=== PATIENT | male | born 1980 | race Caucasian/White ===

== ENCOUNTER 2017-09-10 12:52 | Emergency (ER) | payer OTHER ==
[2017-09-10] MEDS ORDERED: Sodium Chloride 0.9% 2.5 ML Syringe FLUSH PRN (13:15)
[2017-09-10] MEDS ORDERED: Sodium Chloride 0.9% 10 ML Syringe FLUSH PRN (13:15)
--- NOTE | 2017-09-10 13:15 | EDM.PDOC ---
ED HPI GENERAL MEDICAL PROBLEM - General Chief Complaint: Genitourinary Problem Stated Complaint: POSSIBLE KIDNEY STONE Time Seen by Provider: 09/10/17 13:09 Source of Information: Reports: Patient History Limitations: Reports: No Limitations - History of Present Illness INITIAL COMMENTS - FREE TEXT/NARRATIVE: HISTORY AND PHYSICAL: []37-year-old male presenting with right-sided flank pain. He states he's been passing 17 kidney stones yesterday and now requesting a shot of toradal for pain. History of Present Illness: [Patient states he is previously had kidney stones has been able to pass. Concerned about the expense of having CT and lab work completed. He does state that he will return should he worsening condition] Review of Systems: As per history of present illness and below otherwise all systems reviewed and negative. Past medical history: As per history of present illness and as reviewed below otherwise noncontributory. Surgical history: As per history of present illness and as reviewed below otherwise noncontributory. Social history: No reported history of drug or alcohol abuse. Family history: As per history of present illness and as reviewed below otherwise noncontributory. Physical exam: Alert and oriented male quite concerned about his monetary situation. HEENT: Atraumatic, normocehpalic, pupils reactive, negative for conjunctival pallor or scleral icterus, mucous membranes moist, throat clear, neck supple, nontender, trachea midline. Lungs: Clear to auscultation, breath sounds equal bilaterally, chest non tender. Heart: S1S2, regular, negative for clicks, rubs, or JVD. Abdomen: Soft, nondistended, nontender. Negative for masses or hepatossplenmegaly. Positive for right costovertebral tenderness. Pelvis: Stable nontender. Genitourinary: Deferred. Rectal: Deferred Extremities: Atraumatic, negative for cords or calf pain. Neurovascular unremarkable. Neuro: Awake, alert, oriented. Cranial nerves II through XII unremarkable. Cerebellum unremarkable. Motor and sensory unremarkable throughout. Exam nonfocal. Diagnostics: [] Therapeutics: [] Impression: [Renal stones] Plan: []Toradol 60 mg IM Discharge to home Referral will be sent to Dr. Estrella PRIDE [facility] [address] [place] [id number] Definitive disposition and diagnosis as appropriate pending reevaluation and review of above. Onset: Sudden Duration: Day(s): (2) Right Flank Pain Score (Numeric/FACES): 7 - Related Data Allergies Allergy/AdvReac Type Severity Reaction Status Date / Time Sulfa (Sulfonamide Allergy Anaphylactic Verified 09/10/17 13:06 Antibiotics) Shock Home Meds: Home Meds . [No Known Home Meds] 09/10/17 [History] Prazosin HCl [Prazosin] 5 mg PO BID 09/10/17 [History] traZODone 100 mg PO BEDTIME 09/10/17 [History] ED ROS GENERAL - Review of Systems Review Of Systems: ROS reveals no pertinent complaints other than HPI. ED EXAM, RENAL/ - Physical Exam Exam: See Below (see dictation) Course - Vital Signs Last Recorded V/S: Last Vital Signs Temp 36.0 C 09/10/17 13:00 Pulse 89 09/10/17 13:00 Resp 18 09/10/17 13:00 BP 139/95 H 09/10/17 13:00 Pulse Ox 99 09/10/17 13:00 Departure - Departure Time of Disposition: 13:27 Disposition: Home, Self-Care 01 Condition: Good Clinical Impression: Renal stones - Discharge Information Referrals: PCP,None [Primary Care Provider] - Jenny De La Rosa MD [Physician] - Additional Instructions: The following information is given to patients seen in the emergency department who are being discharged to home. This information is to outline your options for follow-up care. We provide all patients seen in our emergency department with a follow-up referral. The need for follow-up, as well as the timing and circumstances, are variable depending upon the specifics of your emergency department visit. If you don't have a primary care physician on staff, we will provide you with a referral. We always advise you to contact your personal physician following an emergency department visit to inform them of the circumstance of the visit and for follow-up with them and/or the need for any referrals to a consulting specialist. The emergency department will also refer you to a specialist when appropriate. This referral assures that you have the opportunity for followup care with a specialist. All of these measure are taken in an effort to provide you with optimal care, which includes your followup. Under all circumstances we always encourage you to contact your private physician who remains a resource for coordinating your care. When calling for followup care, please make the office aware that this follow-up is from your recent emergency room visit. If for any reason you are refused follow-up, please contact the [facility] emergency department at and asked to speak to the emergency department charge nurse. You received Toradol while in the emergency department for your kidney stones Please follow-up with urology referral was made to Dr. Jenny De La Rosa [facility] [address] [place] [id number] Encourage to return to the emergency department should his symptoms worsen Understanding towards his financial concerns was expressed Encouraged to follow up as soon as he can for his condition
[2017-09-10] MEDS ORDERED: Sodium Chloride 0.9% 1,000 ML IV ONE (13:17)
[2017-09-10] MEDS ORDERED: Morphine 2 MG/ML Syringe IVPUSH ONE (13:17)
[2017-09-10] MEDS ORDERED: Ketorolac 60 MG/2 ML SDV IM ONE (13:23)
== END 2017-09-10 13:50 | disposition home or self-care (01) ==
LOC: MW.ED 12:52
DX: N20.0 Calculus of kidney (principal); Z88.2 Allergy status to sulfonamides
CPT/HCPCS: 96372; 99283; J1885

== ENCOUNTER 2017-09-12 10:57 | Emergency (ER) | payer OTHER ==
[2017-09-12 11:57] LABS: CHLORIDE,CL 104 mmol/L (98-110); SODIUM,NA 137 mmol/L (136-146)
--- NOTE | 2017-09-12 11:57 | EDM.PDOC ---
ED HPI GENERAL MEDICAL PROBLEM - General Chief Complaint: Genitourinary Problem Stated Complaint: LOWER BACK PAIN Time Seen by Provider: 09/12/17 11:15 Source of Information: Reports: Patient History Limitations: Reports: No Limitations - History of Present Illness INITIAL COMMENTS - FREE TEXT/NARRATIVE: HISTORY AND PHYSICAL: History of present illness: [Patient comes to the emergency room complaining of right flank pain. Symptoms have been present for the past 3 days. He was evaluated in the emergency room on September 10 with complaints of passing numerous kidney stones. He left prior to having any tests run as he was concerned about the cost. He received a shot of Toradol at that time which gave no improvement in his symptoms. He presents today with continued pain to his right flank with radiation into his buttock. He has been urinating more frequently than usual and has had increased appetite. He reports a history of type 2 diabetes for which she was prescribed metformin. His sugars normalized and he was advised to stop the metformin. His PCP is in [facility] and he has not followed there in the last 6-8 months. He denies fever and chills. He's had no recent illness or infection. No sore throat right nose or cough and cold symptoms. No chest pain shortness of breath or difficulty breathing. Appetite has been normal. No abdominal pain, nausea or vomiting. No left sided flank pain. Denies swelling to his feet and lower legs. He has not taken any medications for his symptoms.] Review of systems: As per history of present illness and below otherwise all systems reviewed and negative. Past medical history: As per history of present illness and as reviewed below otherwise noncontributory. Surgical history: As per history of present illness and as reviewed below otherwise noncontributory. Social history: No reported history of drug or alcohol abuse. Family history: As per history of present illness and as reviewed below otherwise noncontributory. Physical exam: HEENT: Atraumatic, normocephalic. Oral mucous membranes moist, throat clear. Lungs: Clear to auscultation, breath sounds equal bilaterally. Heart: S1S2, regular rate and rhythm. Abdomen: Abdomen is obese. Bowel sounds are normoactive throughout. Abdomen is soft and nondistended. He has no tenderness with palpation. Tenderness with percussion over right flank. No masses guarding or rebound. Pelvis: Stable nontender. Genitourinary: Deferred. Rectal: Deferred. Extremities: Atraumatic, ambulatory without difficulty. Full range of motion. Neurovascular unremarkable. Neuro: Awake, alert, oriented. Motor and sensory unremarkable throughout. Exam nonfocal. Diagnostics: [CBC, CMP, UA, CT abd/pelvis w/o contrast Impression: [R low back pain] Plan: [Discussed with patient that his lab results are largely unremarkable and CT of his abdomen and pelvis shows no kidney stones or abnormality. Will treat as ow back pain with a likely musculoskeletal cause. Recommend [id number] analgesics and anti-inflammatories. Establish care with local PCP and follow-up as we discussed. He verbalized understanding of today's instruction in conversation.] Definitive disposition and diagnosis as appropriate pending reevaluation and review of above. Right Flank Pain Score (Numeric/FACES): 8 - Related Data Allergies Allergy/AdvReac Type Severity Reaction Status Date / Time Sulfa (Sulfonamide Allergy Anaphylactic Verified 09/12/17 10:59 Antibiotics) Shock Home Meds: Home Meds Prazosin HCl [Prazosin] 5 mg PO BID 09/10/17 [History] traZODone 100 mg PO BEDTIME 09/10/17 [History] Past Medical History Psychiatric History: Reports: PTSD - Infectious Disease History Infectious Disease History: Reports: Chicken Pox, Measles, Mumps, Rubella, Shingles Social & Family History - Family History Family Medical History: Noncontributory - Tobacco Use Smoking Status *Q: Current Every Day Smoker Years of Tobacco use: 20 Packs/Tins Daily: 1 - Caffeine Use Caffeine Use: Reports: Energy Drinks, Soda - Recreational Drug Use Recreational Drug Use: No ED ROS GENERAL - Review of Systems Review Of Systems: ROS reveals no pertinent complaints other than HPI. ED EXAM, RENAL/ - Physical Exam Exam: See Below Course - Vital Signs Last Recorded V/S: Last Vital Signs Temp 97.8 F 09/12/17 11:06 Pulse 97 09/12/17 11:06 Resp 18 09/12/17 11:06 BP 141/76 H 09/12/17 11:06 Pulse Ox 99 09/12/17 11:06 - Orders/Labs/Meds Orders: Active Orders 24 hr Category Date Time Status Abdomen Pelvis wo Cont [CT] Stat Exams 09/12/17 12:17 Taken Labs: Laboratory Tests 09/12/17 09/12/17 09/12/17 Range/Units 11:29 11:29 11:45 WBC 10.06 (4.0-11.0) K/uL RBC 5.86 (4.50-5.90) M/uL Hgb 17.6 H (13.0-17.0) g/dL Hct 50.6 H (38.0-50.0) % MCV 86.3 (80.0-98.0) fL MCH 30.0 (27.0-32.0) pg MCHC 34.8 (31.0-37.0) g/dL RDW Std Deviation 40.1 (28.0-62.0) fl RDW Coeff of Lindsay 13 (11.0-15.0) % Plt Count 238 (150-400) K/uL MPV 9.50 (7.40-12.00) fL Neut % (Auto) 55.4 (48.0-80.0) % Lymph % (Auto) 32.1 (16.0-40.0) % Dale % (Auto) 10.0 (0.0-15.0) % Eos % (Auto) 2.0 (0.0-7.0) % Baso % (Auto) 0.5 (0.0-1.5) % Neut # (Auto) 5.6 (1.4-5.7) K/uL Lymph # (Auto) 3.2 H (0.6-2.4) K/uL Dale # (Auto) 1.0 H (0.0-0.8) K/uL Eos # (Auto) 0.2 (0.0-0.7) K/uL Baso # (Auto) 0.1 (0.0-0.1) K/uL Nucleated RBC % 0.0 /100WBC Nucleated RBCs # 0 K/uL Sodium 137 (136-146) mmol/L Potassium 4.5 (3.5-5.1) mmol/L Chloride 104 (98-110) mmol/L Carbon Dioxide 23 (21-31) mmol/L BUN 10 (6.0-23.0) mg/dL Creatinine 0.8 (0.6-1.5) mg/dL Est Cr Clr Drug Dosing 159.33 mL/min Estimated GFR (MDRD) > 60.0 ml/min Glucose 79 (60-110) mg/dL Calcium 9.7 (8.8-10.8) mg/dL Total Bilirubin 0.3 (0.1-1.5) mg/dL AST 27 (5-40) IU/L ALT 31 (8-54) IU/L Alkaline Phosphatase 82 (40-150) Total Protein 8.6 H (6.0-8.0) g/dL Albumin 4.3 (3.5-5.0) g/dL Globulin 4.3 H (2.0-3.5) g/dL Albumin/Globulin Ratio 1.0 L (1.3-2.8) Urine Color YELLOW Urine Appearance CLEAR Urine pH 7.0 (5.0-8.0) Ur Specific [place] 1.020 (1.001-1.035) Urine Protein NEGATIVE (NEGATIVE) mg/dL Urine Glucose (UA) 100 H (NEGATIVE) mg/dL Urine Ketones NEGATIVE (NEGATIVE) mg/dL Urine Occult Blood TRACE-LYSED (NEGATIVE) Urine Nitrite NEGATIVE (NEGATIVE) Urine Bilirubin NEGATIVE (NEGATIVE) Urine Urobilinogen 0.2 (<2.0) EU/dL Ur Leukocyte Esterase NEGATIVE (NEGATIVE) Urine RBC RARE (0-2/HPF) Urine WBC NONE SEEN (0-5/HPF) Ur Epithelial Cells RARE (NONE-FEW) Urine Bacteria NOT SEEN (NEGATIVE) Urine Mucus LIGHT (NONE-MOD) Departure - Departure Time of Disposition: 13:35 Disposition: Home, Self-Care 01 Condition: Good Clinical Impression: Low back pain - Discharge Information Referrals: PCP,Unknown [Primary Care Provider] - Forms: ED Department Discharge Additional Instructions: The following information is given to patients seen in the emergency department who are being discharged to home. This information is to outline your options for follow-up care. We provide all patients seen in our emergency department with a follow-up referral. The need for follow-up, as well as the timing and circumstances, are variable depending upon the specifics of your emergency department visit. If you don't have a primary care physician on staff, we will provide you with a referral. We always advise you to contact your personal physician following an emergency department visit to inform them of the circumstance of the visit and for follow-up with them and/or the need for any referrals to a consulting specialist. The emergency department will also refer you to a specialist when appropriate. This referral assures that you have the opportunity for follow-up care with a specialist. All of these measure are taken in an effort to provide you with optimal care, which includes your follow-up. Under all circumstances we always encourage you to contact your private physician who remains a resource for coordinating your care. When calling for follow-up care, please make the office aware that this follow-up is from your recent emergency room visit. If for any reason you are refused follow-up, please contact the [facility] emergency department at and asked to speak to the emergency department charge nurse. [facility] [address] [place] [address] Establish care with a local primary care provider at the clinic listed above. Follow-up there in the next 3-4 days as we discussed. [id number] Tylenol alternating with ibuprofen as needed for discomfort. Return to ER as needed as discussed. - My Orders Last 24 Hours: My Active Orders 09/12/17 12:17 Abdomen Pelvis wo Cont [CT] Stat - Assessment/Plan Last 24 Hours: My Active Orders 09/12/17 12:17 Abdomen Pelvis wo Cont [CT] Stat
--- NOTE | 2017-09-14 15:50 | CT ---
EXAM DATE: 09/12/17 PATIENT'S AGE: 37 Patient: RHONDA QUISPE Facility: [place], [place] Site . Site : 1980 Study: CT Abdomen/Pelvis [id number]/9/2017 12:41:34 PM Ordering Physician: Doctor Grant Final Report: INDICATION: Abdominal pain. TECHNIQUE: Volumetric helical scanning of the abdomen and pelvis was performed without contrast material. Coronal and sagittal reconstructions were obtained. COMPARISON: None FINDINGS: There is no evidence of bowel obstruction or inflammation. A normal appendix is noted. No free fluid or free air is demonstrated. The liver is normal in size, shape and attenuation. No bile duct dilation is evident. The spleen, adrenal glands, and pancreas are within normal limits. The kidneys are unremarkable. No lymphadenopathy is evident. The prostate is unremarkable. The lung bases are clear. The heart is normal in size. IMPRESSION: Negative CT of the abdomen and pelvis. Please note that all CT scans at this facility use dose modulation, iterative reconstruction, and/or weight-based dosing when appropriate to reduce radiation dose to as low as reasonably achievable. Dictated by Dandy Nettles MD @ Sep 12 2017 1:04PM (Electronic Signature) Report Signed by Proxy. JOSE LUIS
== END 2017-09-12 13:44 | disposition home or self-care (01) ==
LOC: MW.ED 10:57
DX: M54.5 Low back pain (principal); F17.210 Nicotine dependence, cigarettes, uncomplicated; Z88.2 Allergy status to sulfonamides
CPT/HCPCS: 36415; 74176; 74176-26; 80053; 81001; 85025; 99284; 99284-25

== ENCOUNTER 2017-11-25 13:38 | Emergency (ER) | payer OTHER ==
--- NOTE | 2017-11-25 14:07 | EDM.PDOC ---
ED HPI GENERAL MEDICAL PROBLEM - General Chief Complaint: Gastrointestinal Problem Stated Complaint: BLEEDING ULCERS Time Seen by Provider: 11/25/17 14:00 - History of Present Illness INITIAL COMMENTS - FREE TEXT/NARRATIVE: HISTORY AND PHYSICAL: History of present illness: Patient 37-year-old male presents with a concern of work note for today patient states she has history of peptic ulcer disease needs a day off work he states he 's had some blood per rectum he is declining any diagnostics or other evaluation short of physical exam. Review of systems: As per history of present illness and below otherwise all systems reviewed and negative. Past medical history: As per history of present illness and as reviewed below otherwise noncontributory. Surgical history: As per history of present illness and as reviewed below otherwise noncontributory. Social history: No reported history of drug or alcohol abuse. Family history: As per history of present illness and as reviewed below otherwise noncontributory. Physical exam: HEENT: Atraumatic, normocephalic, pupils reactive, negative for conjunctival pallor or scleral icterus, mucous membranes moist, throat clear, neck supple, nontender, trachea midline. Lungs: Clear to auscultation, breath sounds equal bilaterally, chest nontender. Heart: S1S2, regular, negative for clicks, rubs, or JVD. Abdomen: Soft, nondistended, nontender. Negative for masses or hepatosplenomegaly. Negative for costovertebral tenderness. Pelvis: Stable nontender. Genitourinary: Deferred. Rectal: Deferred. Extremities: Atraumatic, negative for cords or calf pain. Neurovascular unremarkable. Neuro: Awake, alert, oriented. Cranial nerves II through XII unremarkable. Cerebellum unremarkable. Motor and sensory unremarkable throughout. Exam nonfocal. Diagnostics: Deferred by patient Therapeutics: None Impression: 1 medical screening exam #2 history of gastric ulcers #3 work note request Definitive disposition and diagnosis as appropriate pending reevaluation and review of above. abdomen Pain Score (Numeric/FACES): 4 - Related Data Allergies Allergy/AdvReac Type Severity Reaction Status Date / Time Sulfa (Sulfonamide Allergy Anaphylactic Verified 11/25/17 13:55 Antibiotics) Shock Home Meds: Home Meds Prazosin HCl [Prazosin] 5 mg PO BID 09/10/17 [History] traZODone 100 mg PO BEDTIME 09/10/17 [History] Ziprasidone Mesylate [Geodon] 11/25/17 [History] Past Medical History Gastrointestinal History: Reports: Other (See Below) Other Gastrointestinal History: gastric ulcers Psychiatric History: Reports: PTSD - Infectious Disease History Infectious Disease History: Reports: Chicken Pox, Measles, Mumps, Rubella, Shingles Social & Family History - Family History Family Medical History: Noncontributory - Tobacco Use Smoking Status *Q: Current Every Day Smoker Years of Tobacco use: 30 Packs/Tins Daily: 1 - Caffeine Use Caffeine Use: Reports: Energy Drinks, Soda - Recreational Drug Use Recreational Drug Use: No ED ROS GENERAL - Review of Systems Review Of Systems: ROS reveals no pertinent complaints other than HPI. ED EXAM, GENERAL - Physical Exam Exam: See Below (See dictation) Course - Vital Signs Last Recorded V/S: Last Vital Signs Temp 36.8 C 11/25/17 13:55 Pulse 95 11/25/17 13:55 Resp 20 11/25/17 13:55 BP 163/111 H 11/25/17 13:55 Pulse Ox 99 11/25/17 13:55 Departure - Departure Time of Disposition: 14:06 Disposition: Home, Self-Care 01 Condition: Good Clinical Impression: Encounter for medical screening examination, History of ulcer disease - Discharge Information Referrals: PCP,Not In Area [Primary Care Provider] - Additional Instructions: The following information is given to patients seen in the emergency department who are being discharged to home. This information is to outline your options for follow-up care. We provide all patients seen in our emergency department with a follow-up referral. The need for follow-up, as well as the timing and circumstances, are variable depending upon the specifics of your emergency department visit. If you don't have a primary care physician on staff, we will provide you with a referral. We always advise you to contact your personal physician following an emergency department visit to inform them of the circumstance of the visit and for follow-up with them and/or the need for any referrals to a consulting specialist. The emergency department will also refer you to a specialist when appropriate. This referral assures that you have the opportunity for followup care with a specialist. All of these measure are taken in an effort to provide you with optimal care, which includes your followup. Under all circumstances we always encourage you to contact your private physician who remains a resource for coordinating your care. When calling for followup care, please make the office aware that this follow-up is from your recent emergency room visit. If for any reason you are refused follow-up, please contact the [facility] emergency department at and asked to speak to the emergency department charge nurse. Follow-up primary medical doctor 1-2 days continue current medications note off work times today return as needed as discussed
== END 2017-11-25 14:20 | disposition home or self-care (01) ==
LOC: MW.ED 13:38
DX: Z13.818 Encounter for screening for other digestive system disorders (principal); F17.210 Nicotine dependence, cigarettes, uncomplicated; Z87.11 Personal history of peptic ulcer disease; Z88.2 Allergy status to sulfonamides
CPT/HCPCS: 99282; 99283